=== PATIENT | male | born 1955 | race African-American/Black ===

== ENCOUNTER → 2017-02-16 | Outpatient (CLI) | payer BC ==
--- NOTE | ~2017-02-16 | CR80 ---
[facility]. [facility] A Service of [facility] RADIOLOGY TEXT RESULTS PATIENT: ANTONIO ORTEGA JR LOCATION: [facility] : 59 UNIT #: [id number] AGE: [address]: Rashard Benson MD SEX: M ORDER DR: [id number] [facility] [address] [place], [place] [address] [id number] O MR#: [id number] Acc #: [id number] NAME: ANTONIO ORTEGA : 1955 SEX: M STUDY DATE/TIME: 02/16/2017 9:29 UNIT: [facility] ROOM: STUDY DESCRIPTION: CR Cystogram Min 3 Views SI Attending Physician: Rashard Benson M.D. Referring Physician: Rashard Benson M.D. Ordering Physician: Rashard Benson M.D. Primary Care Physician: Caio Leong MEDICAL IMAGING REPORT This report is preliminary unless electronic signature is present EXAM Cystogram 02/16/2017 HISTORY Two weeks status post prostatectomy. Evaluate for possible leak. PROCEDURE Study performed with 9 spot images, 2 overhead images and 1.1 minutes of fluoroscopy and 180 mL Cystografin. FINDINGS Normal cystogram. No evidence of leak. No reflux. Mildly limited bladder capacity likely reflects recent surgery and Dotson catheterization. Dictated by... Manuel Christine M.D. THIS IS AN ELECTRONICALLY VERIFIED REPORT Manuel Christine M.D. at 02/20/2017 4:08 PM TEV/to TD: 02/17/2017 18:20 JOB #: [id number] MEDICAL IMAGING REPORT Page 1 of 1 COPY
== END | disposition home or self-care (01) ==
LOC: CRAD 09:04
DX: C61 Malignant neoplasm of prostate (principal); Z98.890 Other specified postprocedural states
CPT/HCPCS: 74430; Q9958